=== PATIENT | female | born 1980 | race Caucasian/White ===

== ENCOUNTER 2017-11-22 02:01 | Emergency (ER) | payer SELFPAY ==
--- NOTE | 2017-11-22 02:09 | EDPHY ---
H & P Time Seen by Provider: 11/22/17 02:03 HPI/ROS: CHIEF COMPLAINT: Alcohol use, head injury HISTORY OF PRESENT ILLNESS: 37-year-old female, unknown tetanus, no anticoagulant use arrives via ambulance, not a trauma activation after she drinking alcohol, fell forward hitting her face, broke her reading glasses, was noted to have piece of her reading glasses imbedded in her skin right eyebrow region. No intraoral ocular foreign body. No visual acuity changes. No diplopia. No midline C-spine pain. No peripheral paresthesia, weakness, numbness. No nausea or vomiting. REVIEW OF SYSTEMS: A ten point review of systems was performed and is negative with the exception of the items mentioned in the HPI PAST MEDICAL/SURGICAL HISTORY: no anticoagulant use, no relevant medical/ surgical history SOCIAL HISTORY: Positive for alcohol use PHYSICAL EXAM 1) GENERAL: Well-developed, well-nourished, alert and oriented. Appears to be in no acute distress. Answering questions appropriately. 2) HEAD: Normocephalic, right lateral eyebrow region a metallic foreign bodies visualized imbedded in the skin. Upon removal there is a 1.5 cm laceration. The skin did not necessitate further wound extension, no other foreign bodies visualized or palpated 3) HEENT: Pupils equal, round, reactive to light bilaterally. Negative Horners. Nasopharynx, oropharynx, clear. No deformity or angulation of nose. No septal hematoma. No rhinorrhea. No oral trauma. Ears bilaterally with normal tympanic membranes. No hemotympanum. No fluid or blood in the external auditory canal. No raccoon eyes. No Ramos sign. Teeth are normally aligned with no gross malocclusion, TMJ bilaterally nontender, facial bones nontender including the zygomatic arch, maxilla mandible. Extraocular movements intact and do not elicit diplopia or abnormal gaze. 4) NECK: Cervical collar is on.Cervical collar is removed while holding inline traction and patient has no complaints of midline cervical pain, no effusion noted, trachea midline, no JVD. Cervical collar replaced as patient admits to alcohol use 5) LUNGS: Clear to auscultation bilaterally, no wheezes, no rhonchi, no retractions. No obvious signs of trauma. No chest wall pain. No flaring, no grunting. Moving symmetrically. No crepitus. 6) HEART: [Regular rate and rhythm, 7) ABDOMEN: No guarding, no rebound, no focal tenderness, no peritoneal signs, no signs of trauma, no ecchymosis 8) MUSCULOSKELETAL: Moving all extremities, no focal areas of tenderness, no obvious trauma. 9) BACK: No midline vertebral tenderness, no fluctuance, no step-off, no obvious trauma, no visual or palpable abnormality. 10) SKIN: No laceration. No abrasion DIFFERENTIAL DIAGNOSIS: Not necessarily in any particular order, my differential diagnosis includes, but is not limited to, concussion, skull fracture, intraparenchymal contusion, subarachnoid, subdural and epidural hematoma. The patient understands that this diagnosis is provisional and can never be 100% accurate. Constitutional: Initial Vital Signs Temperature (C) 36.9 C 11/22/17 02:13 Heart Rate 100 11/22/17 02:13 Respiratory Rate 18 11/22/17 02:13 Blood Pressure 129/78 H 11/22/17 02:13 O2 Sat (%) 95 11/22/17 02:13 O2 Delivery Mode Room Air Allergies/Adverse Reactions: No Known Allergies Allergy (Unverified 11/22/17 02:13) Home Medications: Medication Instructions Recorded NK [No Known Home Meds] 11/22/17 Medical Decision Making Procedures: Procedure: Removal foreign body Indication: Visible foreign body right lateral eyebrow region Area is anesthetized with 1% lidocaine with epinephrine, foreign bodies easily removed, wound is then further examined by myself, no foreign bodies visualized or palpated. Procedure: Laceration repair. I explained the indications, risks and benefits for both laceration repair and anesthetic administration. Verbal consent was obtained from the patient. The laceration on the right lateral eyebrow was anesthetized using 0.5% bupivicaine with epinephrine. After anesthetic administered the patient was observed for a period of time and had no apparent adverse effects. The wound was cleaned, prepped, draped in normal sterile fashion and explored to its base. No foreign body seen, no foreign bodies palpated. There were no deep structures involved. The wound was repaired with 5 simple interrupted 6 0 Prolene sutures. The wound repair was simple. The procedure was performed by myself. Patient has been informed that scarring will occur, although efforts have been made to minimize this. ED Course/Re-evaluation: 2:43 a.m.: I recommended CT imaging the head and C-spine. She declines this at this time, answering questions appropriately, is ambulating with stable steady gait, clear speech pattern, alert oriented person place time events. She has self discharged her cervical collar. Her [id number] is here and will be taking the patient home. Care of patient under supervision of secondary supervising physician Dr Del Cid . Departure - Departure Disposition: Home, Routine, Self-Care Clinical Impression: Laceration of forehead Qualifiers: Encounter type: initial encounter Qualified Code(s): S01.81XA - Laceration without foreign body of other part of head, initial encounter Head injury due to trauma Qualifiers: Encounter type: initial encounter Qualified Code(s): S09.90XA - Unspecified injury of head, initial encounter Condition: Good Instructions: Care For Your Stitches (ED), Laceration (ED), Head Injury (ED) Additional Instructions: ALTHOUGH THERE IS NO EVIDENCE OF SERIOUS HEAD INJURY AT THIS TIME, DELAYED SIGNS CAN APPEAR 24 TO 48 HOURS AFTER INJURY. WE RECOMMEND THAT YOU DESIGNATE A FRIEND OR FAMILY MEMBER TO OBSERVE YOU OVER THE NEXT FEW DAYS TO ENSURE THAT YOUR CONDITION IS PROGRESSING NORMALLY. PLEASE RETURN TO THE EMERGENCY DEPARTMENT (ED) IMMEDIATELY IF YOU HAVE INCREASED HEADACHE, PERSISTENT HEADACHE , VOMITING, WEAKNESS, CONFUSION OR VISUAL PROBLEMS. WE RECOMMEND THAT YOU DO NOT RESUME CONTACT SPORTS OR ACTIVITIES THAT TAKE COORDINATION OR BALANCE SUCH SKIING OR RIDING A BICYCLE UNTIL CLEARED TO DO SO BY YOUR DOCTOR OR BY A NEUROLOGIST. I have recommended CT imaging. You have declined this. You have been explained and has verbalized understanding of the risks of declining this including, but not limited to, , permanent chronic disability. Referrals: Return, to the ER in 5 days for suture removal [Other] - As per Instructions
[2017-11-22 02:16] VITALS: TEMP 98.4; O2SAT 95
[2017-11-22 03:10] VITALS: BP 110/69; PULSE 74; RESP 16
== END 2017-11-22 03:10 | disposition home or self-care (01) ==
PROC: 0HQ1XZZ Repair Face Skin, External Approach (ICD-10-PCS; principal; 2017-11-22)
DX: S01.81XA Laceration without foreign body of other part of head, initial encounter (principal); W01.198A Fall on same level from slipping, tripping and stumbling with subsequent striking against other object, initial encounter